=== PATIENT | female | born 1980 | race Caucasian/White ===

== ENCOUNTER 2016-09-19 23:36 | Emergency (ER) | payer OTHER ==
[~2016-09-19] VITALS: Ht 180.3 cm; Wt 86.3 kg
[~2016-09-19 23:36] MED LIST: AMOX500T PO; PREN0.01 PO
[2016-09-19 23:47] VITALS: BP 139/75; PULSE 86; RESP 18; TEMP 98.2; O2SAT 100
[2016-09-19] MEDS ORDERED: MULT-120 PO (23:47)
[2016-09-20 00:02] LABS: AUTOMATED NEUTROPHIL # 4.8 TH/MM3 (1.8-7.7); BASOPHIL % 0.4 % (0.0-2.0); EOSINOPHIL # 0.1 TH/MM3 (0-0.4); EOSINOPHIL % 1.2 % (0.0-4.0); HEMATOCRIT 34.9 % (35.0-46.0); HEMO FLAGS DIFF FINAL; LYMPH % 34.6 % (9.0-44.0); LYMPHOCYTE # 2.9 TH/MM3 (1.0-4.8); MEAN CELL VOLUME 82.1 FL (80.0-100.0); MEAN CORPUSCULAR HEMOGLOBIN 26.9 PG (27.0-34.0); MEAN CORPUSCULAR HGB CONC 32.7 % (32.0-36.0); MONO % 7.5 % (0.0-8.0); NEUT % 56.3 % (16.0-70.0); PLATELET COUNT 240 TH/MM3 (150-450); RED BLOOD COUNT 4.26 MIL/MM3 (4.00-5.30); RED CELL DISTRIBUTION WIDTH 12.7 % (11.6-17.2); WHITE BLOOD COUNT 8.4 TH/MM3 (4.0-11.0)
[2016-09-20 00:11] LABS: CHLORIDE 106 MEQ/L (98-107); POTASSIUM 3.3 MEQ/L (3.5-5.1); SODIUM (NA) 141 MEQ/L (136-145)
[2016-09-20 00:15] LABS: ANION GAP 8 MEQ/L (5-15); BICARBONATE 26.7 MEQ/L (21.0-32.0); BLOOD UREA NITROGEN 16 MG/DL (7-18)
[2016-09-20 00:18] LABS: ALT (GPT) 27 U/L (10-53); AST (GOT) 16 U/L (15-37); GLOMERULAR FILTRATION RATE 91 ML/MIN (>89)
[2016-09-20 00:19] LABS: TOTAL BILIRUBIN ADULT 0.2 MG/DL (0.2-1.0)
[2016-09-20 00:21] LABS: ALKALINE PHOSPHATASE 76 U/L (45-117)
[2016-09-20 01:39] VITALS: BP 112/76; PULSE 89; O2SAT 95
[2016-09-20] MEDS ORDERED: HYDR1SOL20 PO (01:40)
--- NOTE | 2016-09-20 01:41 | PD ---
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 The patient got worried about her chest pain and came in because of that. She denies any fever. She notices that her voice is hoarse. PFSH Past Medical History Anemia: Yes Tetanus Vaccination: < 5 Years Influenza Vaccination: No ?: Not LMP: 09/01/16 : 3 Para: 3 Past Surgical History Section: Yes (X3) Tonsillectomy: Yes (WITH ADENOIDS) Other Surgery: Yes (LYMPH NODE REMOVED FROM RIGHT SIDE: NEGATIVE) Social History Alcohol Use: Yes ("VERY OCCASIONAL") Tobacco Use: No Substance Use: No Allergies-Medications (Allergen,Severity, Reaction): Coded Allergies: No Known Allergies (Verified , 09/19/16) Reported Meds & Prescriptions Reported Meds & Active Scripts Active Flowtuss Liq (Hydrocodone-Guaifenesin Liq) 2.5-200 Mg/5 Ml Soln 10 Ml PO Q6H PRN Reported Multivitamin Women (Multiple Vitamins W/ Minerals) 1 Tab Tab 1 Tab PO DAILY Review of Systems Except as stated in HPI: all other systems reviewed are Neg Physical Exam Narrative GENERAL: Well-nourished, well-developed patient in no respiratory distress. Her vital signs are normal. SKIN: Warm and dry. No skin rash is seen. HEAD: Normocephalic. EYES: No scleral icterus. No injection or drainage. NECK: Supple, trachea midline. No JVD or lymphadenopathy. There is no meningismus, the patient flexes neck fully so that the chin touches the chest. CARDIOVASCULAR: Regular rate and rhythm without murmurs, gallops, or rubs. RESPIRATORY: Breath sounds equal bilaterally. No accessory muscle use. Lungs clear to auscultation bilaterally. GASTROINTESTINAL: Abdomen soft, non-tender, nondistended. No guarding or rebound is present. MUSCULOSKELETAL: No cyanosis, or edema. BACK: Nontender without obvious deformity. No CVA tenderness. ENT: The tympanic membranes are clear. The throat is clear without erythema, exudate or abscess. Data Data Last Documented VS Vital Signs Date Time Temp Pulse Resp B/P Pulse Ox O2 Delivery O2 Flow Rate FiO2 09/20/16 01:39 89 112/76 95 Room Air 09/19/16 23:47 98.2 18 Orders Complete Blood Count With Diff (09/19/16 23:49) Comprehensive Metabolic Panel (09/19/16 23:49) Troponin I (09/19/16 23:49) Electrocardiogram (09/19/16 ) Labs Laboratory Tests Test 09/19/16 23:45 White Blood Count 8.4 TH/MM3 Red Blood Count 4.26 MIL/MM3 Hemoglobin 11.4 GM/DL Hematocrit 34.9 % Mean Corpuscular Volume 82.1 FL Mean Corpuscular Hemoglobin 26.9 PG Mean Corpuscular Hemoglobin 32.7 % Concent Red Cell Distribution Width 12.7 % Platelet Count 240 TH/MM3 Mean Platelet Volume 8.3 FL Neutrophils (%) (Auto) 56.3 % Lymphocytes (%) (Auto) 34.6 % Monocytes (%) (Auto) 7.5 % Eosinophils (%) (Auto) 1.2 % Basophils (%) (Auto) 0.4 % Neutrophils # (Auto) 4.8 TH/MM3 Lymphocytes # (Auto) 2.9 TH/MM3 Monocytes # (Auto) 0.6 TH/MM3 Eosinophils # (Auto) 0.1 TH/MM3 Basophils # (Auto) 0.0 TH/MM3 CBC Comment DIFF FINAL Differential Comment Sodium Level 141 MEQ/L Potassium Level 3.3 MEQ/L Chloride Level 106 MEQ/L Carbon Dioxide Level 26.7 MEQ/L Anion Gap 8 MEQ/L Blood Urea Nitrogen 16 MG/DL Creatinine 0.72 MG/DL Estimat Glomerular Filtration 91 ML/MIN Rate Random Glucose 90 MG/DL Calcium Level 8.4 MG/DL Total Bilirubin 0.2 MG/DL Aspartate Amino Transf 16 U/L (AST/SGOT) Alanine Aminotransferase 27 U/L (ALT/SGPT) Alkaline Phosphatase 76 U/L Troponin I LESS THAN 0.02 NG/ML Total Protein 7.7 GM/DL Albumin 3.8 GM/DL MDM Medical Decision Making Medical Screen Exam Complete: Yes Emergency Medical Condition: Yes Medical Record Reviewed: Yes Interpretation(s) The EKG shows sinus rhythm with a rate of 79 and borderline first-degree AV block but is otherwise normal. The CBC is normal and the cardiac enzymes are normal. The potassium is 3.3 and the calcium is 8.4 but the rest of the complete metabolic profile is normal. Differential Diagnosis Viral syndrome, pleurisy, bronchitis, pneumonia, otitis media, pharyngitis Narrative Course The patient appears to have a viral syndrome. She will get Motrin 600 mg, low- dose liquid cough syrup and Phenergan for nausea. Diagnosis Primary Impression: Viral syndrome Additional Instructions: As we discussed, rest, liquids and Motrin are probably the best you can do against a viral syndrome. In addition do not drink alcohol or drive on the Phenergan or the cough syrup. The Phenergan is for the nausea and it also helps the cough. Follow-up with a primary care physician next week. Med/Other Pt SpecificInfo: Prescription(s) given Scripts Promethazine (Phenergan)25 Mg Tab25 Mg PO Q6H PRN (Nausea/Vomiting) #21 TAB Ref 0 Prov:Good Weston MD 09/20/16 Ibuprofen 600 Mg [id number] Mg PO TID #45 TAB Ref 0 Prov:Good Weston MD 09/20/16 Hydrocodone-Guaifenesin Liq (Flowtuss Liq)2.5-200 Mg/5 Ml Soln10 Ml PO Q6H PRN ( COUGH AND COLD SYMPTOMS) #120 ML Ref 0 Prov:Good Weston MD 09/20/16 Disposition: 01 DISCHARGE HOME Condition: Stable Good Weston MD Sep 20, 2016 01:41
[2016-09-20] MEDS ORDERED: KETOROLAC TROMETHAMINE 60 MG/2 ML (IM) VIAL IVP ONE (01:45)
[2016-09-20] MEDS ORDERED: IBUP-232 PO (01:54)
[2016-09-20] MEDS ORDERED: PROM25TA5 PO (01:54)
--- NOTE | 2016-09-20 23:46 | EKG ---
Date Performed: 09/19/2016 Time Performed: 23:55:46 PTAGE: 36 years EKG: Sinus rhythm with borderline 1st degree A-V block. Borderline ECG PREVIOUS TRACING : 09/19/2016 23.55 DOCTOR: Govind Lugo Interpretating Date/Time 09/20/2016 23:41:41
== END 2016-09-20 02:02 | disposition home or self-care (01) ==
LOC: PHED 23:36
DX: B34.9 Viral infection, unspecified (principal)
CPT/HCPCS: 80053; 84484; 85025; 93005; 96374; 99285; J1885

== ENCOUNTER 2017-05-18 14:22 | Emergency (ER) | payer SELFPAY ==
[~2017-05-18] VITALS: Ht 180.3 cm; Wt 96.0 kg
[~2017-05-18 14:22] MED LIST changes: -AMOX500T PO; +HYDR1SOL20 PO; +IBUP-232 PO; +MULT-120 PO; -PREN0.01 PO; +PROM25TA5 PO
[2017-05-18 14:25] VITALS: BP 132/65; PULSE 76; RESP 16; TEMP 98
--- NOTE | 2017-05-18 14:55 | PD ---
HPI Chief Complaint: Complaint Time Seen by Provider: 14:45 Travel History International Travel<30 days: No Contact w/Intl Traveler<30days: No Traveled to known affect area: No History of Present Illness HPI 36-year-old female presents to the emergency room for evaluation of dysuria, urgency, frequency, hematuria, and right-sided flank pain for the past 3 days. States any time she wipes there is blood on the tissue there is no gross blood in the toilet. Patient states 1.5 weeks ago she had fevers with a maximum temperature of 102.5 with no other symptoms which went away after 3 days. She has been taking Tylenol and Motrin for the back pain without significant relief in symptoms. Pain is 4/10. She denies history of kidney stones. No chronic medical conditions or daily medications. Denies possibility of . Last menstrual cycle was 1.5 weeks ago. PFSH Past Medical History Anemia: Yes Tetanus Vaccination: < 5 Years Influenza Vaccination: No ?: Not LMP: 1 week ago : 3 Para: 3 Past Surgical History Section: Yes (X3) Tonsillectomy: Yes (WITH ADENOIDS) Other Surgery: Yes (LYMPH NODE REMOVED FROM RIGHT SIDE: NEGATIVE) Social History Alcohol Use: Yes ("VERY OCCASIONAL") Tobacco Use: No Substance Use: No Allergies-Medications (Allergen,Severity, Reaction): Coded Allergies: No Known Allergies (Verified , 05/18/17) Reported Meds & Prescriptions Reported Meds & Active Scripts Active Review of Systems Except as stated in HPI: all other systems reviewed are Neg Physical Exam Narrative GENERAL: Well-nourished, well-developed female in no acute distress. Afebrile. Ambulatory. SKIN: Focused skin assessment warm/dry. HEAD: Normocephalic. EYES: No scleral icterus. No injection or drainage. NECK: Supple, trachea midline. No JVD or lymphadenopathy. CARDIOVASCULAR: Regular rate and rhythm without murmurs, gallops, or rubs. RESPIRATORY: Breath sounds equal bilaterally. No accessory muscle use. BACK: Nontender without obvious deformity. Mild right-sided CVA tenderness. Data Data Last Documented VS Vital Signs Date Time Temp Pulse Resp B/P (MAP) Pulse Ox O2 Delivery O2 Flow Rate FiO2 05/18/17 14:25 98.0 76 16 132/65 (87) Orders Orders Urinalysis - C+S If Indicated (05/18/17 14:51) Ed Urine Pregnancytest Poc (05/18/17 14:51) Complete Blood Count With Diff (05/18/17 15:20) Basic Metabolic Panel (Bmp) (05/18/17 15:20) Ct Abd/Pel W/O Iv Contrast (05/18/17 15:20) Iv Access Insert/Monitor (05/18/17 15:20) Labs Laboratory Tests Test 05/18/17 14:58 05/18/17 15:50 Urine Collection Type CLEAN CATCH Urine Color YELLOW Urine Turbidity CLEAR Urine pH 6.5 Urine Specific [place] 1.020 Urine Protein NEG mg/dL Urine Glucose (UA) NEG mg/dL Urine Ketones NEG mg/dL Urine Occult Blood MOD Urine Nitrite NEG Urine Bilirubin NEG Urine Leukocyte Esterase NEG Urine RBC 10-14 /hpf Urine Squamous Epithelial Cells 0-5 /hpf Urine Bacteria FEW /hpf Microscopic Urinalysis Comment CULT NOT INDICATED Urine Collection Time 14:58 MDM Medical Decision Making Medical Screen Exam Complete: Yes Emergency Medical Condition: Yes Medical Record Reviewed: Yes Differential Diagnosis Pyelonephritis, urinary tract infection, kidney stone Narrative Course 36-year-old female presents to the emergency room for evaluation of dysuria, urgency, frequency, hematuria, and right-sided flank pain for the past 3 days. She had fever 1.5 weeks ago for 3 days but has not had one since. Physical exam is reassuring. Vital signs stable. There is mild right-sided CVA tenderness. test is negative. Patient was informed that she may have kidney stone and will need a CAT scan of blood work but preferred to wait until the UA came back in case there was obvious evidence of infection. UA shows evidence of blood in the urine and no evidence of infection. At this time decision was made to investigate for nephrolithiasis. CBC and BMP are unremarkable. CT shows less than 1 mm kidney stone. Patient was informed hematuria was likely due to previous stone passing. Because of dysuria and few bacteria in the urine, patient will be placed on prophylactic antibiotics as recommended by my attending physician. She was told to follow-up the primary care physician or return to the emergency room for worsening symptoms. She understands and agrees to plan. Diagnosis Primary Impression: Nephrolithiasis Referrals: Primary Care Physician Additional Instructions: Rest and drink plenty of fluids. Take Keflex as directed, until gone. Take ibuprofen with food as directed, as needed for pain. Follow-up with a primary care physician. Return to the emergency room for worsening symptoms. Med/Other Pt SpecificInfo: Prescription(s) given Disposition: 01 DISCHARGE HOME Condition: Stable Rachelle Lang May 18, 2017 14:55
[2017-05-18 15:01] LABS: BLOOD, URINE MOD (NEG); GLUCOSE,URINE NEG (NEG); KETONE, URINE NEG (NEG); NITRITE,URINE NEG (NEG); PH, URINE 6.5 (5.0-8.5)
[2017-05-18 15:12] LABS: METHOD OF COLLECTION CLEAN CATCH; SQUAMOUS EPITHELIAL CELL URINE 0-5 /hpf (0-5); URINE COLOR YELLOW (YELLW/STRAW)
[2017-05-18 15:13] LABS: BACTERIA, URINE FEW /hpf; COMMENT (UR) CULT NOT INDICATED; CULTURE IF INDICATED CULT NOT INDICATED
--- NOTE | 2017-05-18 15:59 | RADRPT ---
EXAM DATE/TIME: 05/18/2017 15:36 [facility] COMPARISON: No previous studies available for comparison. INDICATIONS : Right flank pain. Hematuria. ORAL CONTRAST: No oral contrast ingested. RADIATION DOSE: 21.35 CTDIvol (mGy) MEDICAL HISTORY : None SURGICAL HISTORY : section. ENCOUNTER: Initial ACUITY: 3 days PAIN SCALE: 4/10 LOCATION: Right flank TECHNIQUE: Volumetric scanning of the abdomen and pelvis was performed. Using automated exposure control and ad justment of the mA and/or kV according to patient size, radiation dose was kept as low as reasonably achievable to obtain optimal diagnostic quality images. DICOM format image data is available electro nically for review and comparison. FINDINGS: LOWER LUNGS: The visualized lower lungs are clear. LIVER: Homogeneous density without lesion. There is no dilation of the biliary tree. There are focal small calcified gallstones noted no definite wall thickening or inflammatory change. SPLEEN: Normal size without lesion. PANCREAS: Within normal limits. KIDNEYS: Normal in size and shape. There is no mass or hydronephrosis. There is a single tiny less than 1 mm right renal calculus. ADRENAL GLANDS: Within normal limits. VASCULAR: There is no aortic aneurysm. BOWEL/MESENTERY: The stomach, small bowel, and colon demonstrate no acute abnormality. There is no free intraperitone al air or fluid. ABDOMINAL WALL: Within normal limits. RETROPERITONEUM: There is no lymphadenopathy. BLADDER: No wall thickening or mass. REPRODUCTIVE: Within normal limits. INGUINAL: There is no lymphadenopathy or hernia. MUSCULOSKELETAL: Within normal limits for patient age. CONCLUSION: 1. Single tiny less than 1 mm right renal calculus. There is no evidence of obstruction. 2. Multiple small calcified gallstones. Jaylon Aguilar MD on May 18, 2017 at 15:54 Board Certified Radiologist. This report was verified electronically.
[2017-05-18 16:05] VITALS: BP 111/64; PULSE 77; RESP 16; O2SAT 100
[2017-05-18 16:05] LABS: AUTOMATED NEUTROPHIL # 1.9 TH/MM3 (1.8-7.7); BASOPHIL % 0.4 % (0.0-2.0); EOSINOPHIL # 0.1 TH/MM3 (0-0.4); EOSINOPHIL % 2.3 % (0.0-4.0); HEMATOCRIT 35.4 % (35.0-46.0); HEMO FLAGS DIFF FINAL; LYMPH % 37.6 % (9.0-44.0); LYMPHOCYTE # 1.4 TH/MM3 (1.0-4.8); MEAN CELL VOLUME 78.7 FL (80.0-100.0); MEAN CORPUSCULAR HEMOGLOBIN 25.8 PG (27.0-34.0); MEAN CORPUSCULAR HGB CONC 32.8 % (32.0-36.0); MONO % 8.8 % (0.0-8.0); NEUT % 50.9 % (16.0-70.0); PLATELET COUNT 194 TH/MM3 (150-450); RED BLOOD COUNT 4.49 MIL/MM3 (4.00-5.30); RED CELL DISTRIBUTION WIDTH 14.3 % (11.6-17.2); WHITE BLOOD COUNT 3.7 TH/MM3 (4.0-11.0)
[2017-05-18] MEDS ORDERED: CEPH-460 PO (16:08)
[2017-05-18 16:18] LABS: POTASSIUM 3.5 MEQ/L (3.5-5.1)
[2017-05-18 16:21] LABS: BICARBONATE 29.5 MEQ/L (21.0-32.0)
== END 2017-05-18 16:45 | disposition home or self-care (01) ==
LOC: PHEFT 14:22 → PHED 16:45
DX: N20.0 Calculus of kidney (principal)
CPT/HCPCS: 74176; 80048; 81001; 84703; 85025; 99284